=== PATIENT | male | born 1975 | race Caucasian/White ===

== ENCOUNTER 2019-04-24 08:45 | Emergency (ER) | payer BC ==
[~2019-04-24 08:45] MED LIST: Sodium Chloride 0.9% 1,000 ML BAG ONE
[2019-04-24] MEDS ORDERED: Ketorolac Tromethamine 30 MG/ML VIAL ONE (09:18)
[2019-04-24] MEDS ORDERED: Ondansetron PF 4 MG/2 ML Vial ONE (09:18)
--- NOTE | 2019-04-24 09:25 | CT ---
CT ABDOMEN AND PELVIS WITHOUT CONTRAST: Comparison: None. History: Right flank pain for a week. Technique: Multiple contiguous axial images were obtained in a CT of the abdomen/pelvis without contr ast. Coronal reformats were performed. FINDINGS: There is a 6 mm calcification in the proximal right ureter with mild to moderate right hydronephrosis . No left hydronephrosis is seen. No other calcifications are seen in either kidney or ureter. The liver, gallbladder, adrenal glands, spleen, and pancreas are unremarkable, although evaluation is limited without IV contrast. No free air, free fluid, or stranding changes are seen in the abdomen o r pelvis. There are scattered diverticula in the colon. The small bowel and appendix are unremarkable. No abdom inal or pelvic lymphadenopathy are seen. Atherosclerotic calcifications are seen in the aorta. Degenerative changes are seen in the spine. The visualized inferior thorax and abdominal wall soft ti ssues are unremarkable. IMPRESSION: 1. Proximal right ureter calcifications with right sided hydronephrosis. 2. Diverticulosis. POS: [facility]
[2019-04-24 09:35] LABS: ALT (SGPT) 26 U/L (8-55); AST (SGOT) 20 U/L (5-34); Albumin 4.7 g/dL (3.5-5.0); Alkaline Phosphatase 74 U/L (40-150); Anion Gap 17 mmol/L (10-20); BUN (Urea Nitrogen) 14 mg/dL (8.9-20.6); Bilirubin, Total 0.9 mg/dL (0.2-1.2); Calc. Creatinine Clearance 0 mL/min (70-130); Calcium 9.7 mg/dL (7.8-10.44); Carbon Dioxide 24 mmol/L (22-29); Chloride 105 mmol/L (98-107); Estimated GFR-MDRD 60; Globulin 2.4 g/dL (2.4-3.5); Glucose 98 mg/dL (70-105); Potassium 3.9 mmol/L (3.5-5.1); Protein, Total 7.1 g/dL (6.0-8.3); Sodium 142 mmol/L (136-145)
[2019-04-24 09:36] LABS: Band 2 % (5-11); Hemoglobin 15.2 g/dL (14.0-18.0); Large Platelets SLIGHT; Lymphocytes 14 % (21-51); MDiff Complete? YES; Mean Corpuscular HGB CONC 33.6 g/dL (32.0-36.0); Mean Corpuscular Hemoglobin 28.6 pg (27.0-31.0); Mean Corpuscular Volume 85.2 fL (78.0-98.0); Mean Platelet Volume 8.3 fL (7.4-10.4); Monocytes 8 % (0-10); Neutrophil 76 % (42-75); Platelet Count 270 thou/uL (130-400); Platelet Morphology Comment Appears Adequate; RBC Distribution Width 11.7 % (11.5-14.5); RBC Morphology Normal; White Blood Cell (WBC) Count 12.2 thou/uL (4.8-10.8)
[2019-04-24] MEDS ORDERED: Fentanyl 100 MCG/2 ML VIAL ONE ×2 (09:51→11:56)
[2019-04-24 10:13] LABS: Bilirubin Small (Negative); Blood, Urine Moderate (Negative); Clarity Hazy (Clear); Glucose, Urine (Dipstick) Negative (Negative); Leukocyte Negative (Negative); Nitrite Negative (Negative); Protein, Urine (Dipstick) 30 mg/dL (Neg-Trace); Urobilinogen 0.2 mg/dL (Less than 2)
[2019-04-24 10:14] LABS: Bacteria/HPF Rare-Few HPF (None Seen); Mucous/LPF Rare LPF (<2+); Squamous Epithelial 0-3 HPF (0-3); WBC/HPF 0-3 HPF (0-3)
[2019-04-24 10:15] LABS: Calcium Oxalate Crystals Rare HPF (None Seen)
== END 2019-04-24 13:25 | disposition short-term general hospital (02) ==
LOC: MADERS 08:45
DX: N13.2 Hydronephrosis with renal and ureteral calculous obstruction (principal); I10 Essential (primary) hypertension; Z79.899 Other long term (current) drug therapy
CPT/HCPCS: 74176; 80053; 81003; 81015; 85025; 87086; 96361; 96374; 96375; 96376; J1885; J2405; J3010; J7050